=== PATIENT | female | born 1940 | race Caucasian/White ===

== ENCOUNTER 2019-11-11 05:57 | Inpatient (IN) ==
[2019-11-05 12:49] LABS: Basophils % 0.5 % (0.0-0.8); Eosinophils # 0.2 10*3/uL (0.0-0.87); Eosinophils % 2.4 % (0.00-10.9); Hematocrit 32.1 VOL% (35.7-47.0); Hemoglobin 10.2 GM/DL (12.0-16.0); Immature Granulocytes % 0.8 %; Immature Granulocytes Absolute 0.05 #; Lymphocytes # 1.5 10*3/uL (1.4-4.0); Lymphocytes % 23.6 % (21.3-54.2); Mean Corpuscular HGB Conc 31.8 GM/DL (32-36); Mean Corpuscular Volume 98.2 FL (87-102); Mean Platelet Volume 10.8 FL (9.6-12.0); Monocytes % 9.8 % (1.7-12.7); Neutrophils % 62.9 % (38.7-73.9); Platelet Count 285 T/CUMM (130-400); Red Blood Count 3.27 MC/CUMM (3.8-5.5); Red Cell Distribution Width 13.4 % (9.3-17.3); White Blood Count 6.2 T/CUMM (4-12)
[2019-11-05 13:09] LABS: Calcium 9.3 MG/DL (8.5-10.1); Osmolality,Calculated 270.2 MOS/KG (273-304)
[~2019-11-11 05:57] MED LIST: CIPROFLOXACIN 400 MG/200 ML PREMIX IV ONE; LACTATED RINGERS 1,000 ML IV SCH; metroNIDAZOLE 500 MG/100 ML PREMIX IV ONE
[2019-11-11] MEDS ORDERED: CIPROFLOXACIN INJ 400 MG in PREMIX 1 EACH IV ONE (06:00)
[2019-11-11] MEDS ORDERED: metroNIDAZOLE INJ 500 MG in PREMIX 1 EACH IV ONE (06:00)
[2019-11-11] MEDS ORDERED: FAMOTIDINE 20 MG TABLET PO ONE (06:25)
[2019-11-11] MEDS ORDERED: DIAZEPAM 5 MG TABLET PO ONE (06:25)
[2019-11-11] MEDS ORDERED: BUPIVACAINE MPF 0.5% /EPI 30 ML VIAL ONE (06:49)
[2019-11-11] MEDS ORDERED: DEXAMETHASONE 4 MG/1 ML VIAL ONE (06:49)
[2019-11-11] MEDS ORDERED: ALBUMIN 5% 12.5 GM/250 ML VIAL IV ONE (07:19)
[2019-11-11] MEDS ORDERED: FAMOTIDINE 20 MG/2 ML VIAL IV ONE (07:19)
[2019-11-11] MEDS ORDERED: INDOCYANINE GREEN 25 MG VIAL IV ONE (08:06)
[2019-11-11] MEDS ORDERED: TISSUE ADHESIVE 1 EACH APPLICATOR TOP ONE (08:06)
[2019-11-11] MEDS ORDERED: SUGAMMADEX 200 MG/2 ML VIAL IV ONE (10:11)
[2019-11-11] MEDS ORDERED: ACETAMINOPHEN 325 MG SUPP RECTAL ONE (10:15)
[2019-11-11] MEDS ORDERED: SEVOFLURANE 1 UNIT/15 MINUTE INH ONE (11:39)
[2019-11-11] MEDS ORDERED: LIDOCAINE 2% 5 ML VIAL ONE (11:39)
[2019-11-11] MEDS ORDERED: propofoL 200 MG/20 ML VIAL IV ONE (11:39)
[2019-11-11] MEDS ORDERED: CALCIUM CHLORIDE 1,000 MG/10 ML VIAL IV ONE (11:39)
[2019-11-11] MEDS ORDERED: KETAMINE 500 MG/10 ML VIAL ONE (11:40)
[2019-11-11] MEDS ORDERED: MIDAZOLAM 2 MG/2 ML VIAL ONE (11:40)
[2019-11-11] MEDS ORDERED: LACTATED RINGERS 1,000 ML IV ONE (11:40)
[2019-11-11] MEDS ORDERED: KETOROLAC 30 MG/1 ML VIAL ONE (11:40)
[2019-11-11] MEDS ORDERED: ONDANSETRON 4 MG/2 ML VIAL ONE (11:40)
[2019-11-11] MEDS ORDERED: LABETALOL 100 MG/20 ML VIAL IV ONE (11:40)
[2019-11-11] MEDS ORDERED: GLYCOPYRROLATE 0.4 MG/2 ML VIAL ONE (11:41)
[2019-11-11] MEDS ORDERED: SUCCINYLCHOLINE 200 MG/10 ML VIAL ONE (11:41)
[2019-11-11] MEDS ORDERED: ROCURONIUM 100 MG/10 ML VIAL IV ONE (11:41)
[2019-11-11] MEDS ORDERED: LABETALOL 20 MG/4 ML SYRINGE IV ONE (11:42)
[2019-11-11] MEDS ORDERED: hydrALAZINE 20 MG/1 ML VIAL ONE (12:05)
[2019-11-11] MEDS ORDERED: hydrALAZINE 20 MG/1 ML VIAL IV ONE (12:11)
[2019-11-11] MEDS ORDERED: HYDROmorphone 2 MG/1 ML VIAL IV PRN (12:24)
[2019-11-11] MEDS ORDERED: PANTOPRAZOLE 40 MG TABLET PO PRN (14:06)
[2019-11-11] MEDS ORDERED: LOPERAMIDE 2 MG CAPSULE PO PRN (14:06)
[2019-11-11] MEDS ORDERED: MELATONIN 3 MG TABLET PO PRN (14:06)
[2019-11-11] MEDS ORDERED: PROMETHAZINE 25 MG/1 ML VIAL IM PRN (14:06)
[2019-11-11] MEDS ORDERED: ONDANSETRON 4 MG/2 ML VIAL IV PRN (14:06)
[2019-11-11] MEDS: DENOSUMAB 60 MG/ML SYRINGE SUBCUT SCH (15:09)
[2019-11-11] MEDS: LACTATED RINGERS 1,000 ML IV SCH (15:11)
[2019-11-11 15:18] LABS: Basophils % 0.1 % (0.0-0.8); Eosinophils % 0.1 % (0.00-10.9); Hematocrit 31.3 VOL% (35.7-47.0); Hemoglobin 9.6 GM/DL (12.0-16.0); Immature Granulocytes % 0.5 %; Immature Granulocytes Absolute 0.07 #; Lymphocytes # 0.8 10*3/uL (1.4-4.0); Lymphocytes % 5.6 % (21.3-54.2); Mean Corpuscular HGB Conc 30.7 GM/DL (32-36); Mean Platelet Volume 10.9 FL (9.6-12.0); Monocytes % 5.8 % (1.7-12.7); Neutrophils % 87.9 % (38.7-73.9); Platelet Count 158 T/CUMM (130-400); Red Blood Count 3.07 MC/CUMM (3.8-5.5); Red Cell Distribution Width 13.4 % (9.3-17.3); White Blood Count 14.8 T/CUMM (4-12)
[2019-11-11 15:39] LABS: Calcium 9.9 MG/DL (8.5-10.1); Osmolality,Calculated 277.7 MOS/KG (273-304)
[2019-11-11] MEDS: diphenhydrAMINE CAP 25 MG CAPSULE PO SCH (20:21)
[2019-11-11] MEDS: ACETAMINOPHEN 500 MG TABLET PO SCH (20:21)
[2019-11-11] MEDS: VALERIAN ROOT 500 MG PO SCH (20:25)
[2019-11-12] MEDS: LACTATED RINGERS 1,000 ML IV SCH ×3 (02:14→23:56)
[2019-11-12 03:35] LABS: Basophils % 0.1 % (0.0-0.8); Hematocrit 23.3 VOL% (35.7-47.0); Hemoglobin 7.6 GM/DL (12.0-16.0); Immature Granulocytes % 0.5 %; Immature Granulocytes Absolute 0.06 #; Lymphocytes # 1.4 10*3/uL (1.4-4.0); Lymphocytes % 10.6 % (21.3-54.2); Mean Corpuscular HGB Conc 32.6 GM/DL (32-36); Mean Corpuscular Volume 97.5 FL (87-102); Mean Platelet Volume 9.9 FL (9.6-12.0); Monocytes % 7.9 % (1.7-12.7); Neutrophils % 80.9 % (38.7-73.9); Platelet Count 211 T/CUMM (130-400); Red Blood Count 2.39 MC/CUMM (3.8-5.5); Red Cell Distribution Width 13.6 % (9.3-17.3); White Blood Count 13.2 T/CUMM (4-12)
[2019-11-12 03:47] LABS: Calcium 8.5 MG/DL (8.5-10.1); Osmolality,Calculated 277.7 MOS/KG (273-304)
[2019-11-12] MEDS ORDERED: ENOXAPARIN 40 MG/0.4 ML SYRINGE SUBCUT SCH (05:16)
[2019-11-12] MEDS ORDERED: LACTATED RINGERS 1,000 ML IV ONE (06:39)
[2019-11-12] MEDS: OMEGA 3 ACID ETHYL ESTERS 1 GM CAPSULE PO SCH (08:22)
[2019-11-12] MEDS: CALCIUM (CITRATE)/VITAMIN D 200 MG-125 UNIT TABLET PO SCH (08:22)
[2019-11-12] MEDS: FERROUS SULFATE 325 MG TABLET PO SCH (08:22)
[2019-11-12] MEDS: LACTOBACILLUS ACIDOPHILUS/BULGARICUS CAPLET PO SCH (08:22)
[2019-11-12] MEDS: [UNRECOGNIZED DRUG - OTHER] PO SCH (08:23)
[2019-11-12 13:29] LABS: Hematocrit 21.1 VOL% (35.7-47.0); Hemoglobin 6.6 GM/DL (12.0-16.0)
[2019-11-12] MEDS ORDERED: SODIUM CHLORIDE 0.9% 1,000 ML IV PRN (14:04)
[2019-11-12] MEDS: DENOSUMAB 60 MG/ML SYRINGE SUBCUT SCH (15:37)
[2019-11-12] MEDS: HYDROmorphone 2 MG/1 ML VIAL IV PRN ×2 (18:29→23:56)
[2019-11-12] MEDS: ACETAMINOPHEN 500 MG TABLET PO SCH (20:10)
[2019-11-12] MEDS: diphenhydrAMINE CAP 25 MG CAPSULE PO SCH (20:10)
[2019-11-12] MEDS: VALERIAN ROOT 500 MG PO SCH (20:12)
[2019-11-12 21:17] LABS: Hematocrit 31.5 VOL% (35.7-47.0)
[2019-11-12 21:18] LABS: Hemoglobin 10.3 GM/DL (12.0-16.0)
[2019-11-12 21:40] LABS: PT Patient Result 10.9 SECS (9.8-11.9)
[2019-11-13] MEDS: HYDROmorphone 2 MG/1 ML VIAL IV PRN (04:29)
[2019-11-13 05:39] LABS: Basophils % 0.2 % (0.0-0.8); Eosinophils # 0.1 10*3/uL (0.0-0.87); Eosinophils % 0.4 % (0.00-10.9); Hemoglobin 11.1 GM/DL (12.0-16.0); Immature Granulocytes % 0.5 %; Immature Granulocytes Absolute 0.07 #; Lymphocytes # 2.3 10*3/uL (1.4-4.0); Lymphocytes % 16.1 % (21.3-54.2); Mean Corpuscular HGB Conc 31.7 GM/DL (32-36); Mean Corpuscular Volume 95.9 FL (87-102); Mean Platelet Volume 10.2 FL (9.6-12.0); Monocytes % 7.5 % (1.7-12.7); Neutrophils % 75.3 % (38.7-73.9); Platelet Count 204 T/CUMM (130-400); Red Blood Count 3.65 MC/CUMM (3.8-5.5); Red Cell Distribution Width 14.7 % (9.3-17.3); White Blood Count 14.2 T/CUMM (4-12)
[2019-11-13 06:03] LABS: Calcium 8.6 MG/DL (8.5-10.1); Osmolality,Calculated 281.3 MOS/KG (273-304)
[2019-11-13 07:36] VITALS: BP 125/75
[2019-11-13] MEDS: CALCIUM (CITRATE)/VITAMIN D 200 MG-125 UNIT TABLET PO SCH (08:53)
[2019-11-13] MEDS: LACTATED RINGERS 1,000 ML IV SCH (08:53)
[2019-11-13] MEDS: OMEGA 3 ACID ETHYL ESTERS 1 GM CAPSULE PO SCH (08:54)
[2019-11-13] MEDS: LACTOBACILLUS ACIDOPHILUS/BULGARICUS CAPLET PO SCH (08:54)
[2019-11-13] MEDS: FERROUS SULFATE 325 MG TABLET PO SCH (08:54)
[2019-11-13] MEDS: [UNRECOGNIZED DRUG - OTHER] PO SCH (08:55)
== END 2019-11-13 11:17 | disposition home health service (06) | DRG 330 ==
LOC: EDBD → N.SDSINP 05:57 → N.4E 12:48
PROVIDERS: ADMIT Surgery; ATTEND Surgery

== ENCOUNTER 2019-11-17 14:16 | Inpatient (IN) ==
[2019-11-17] MEDS ORDERED: ACETAMINOPHEN 325 MG TABLET PO PRN (16:51)
[2019-11-17] MEDS ORDERED: LACTATED RINGERS 1,000 ML IV ONE (16:51)
[2019-11-17] MEDS ORDERED: PROMETHAZINE 25 MG/1 ML VIAL IM PRN (16:51)
[2019-11-17 17:48] LABS: Basophils % 0.2 % (0.0-0.8); Eosinophils % 0.1 % (0.00-10.9); Hemoglobin 11.8 GM/DL (12.0-16.0); Immature Granulocytes Absolute 0.13 #; Lymphocytes # 0.8 10*3/uL (1.4-4.0); Lymphocytes % 5.8 % (21.3-54.2); Mean Corpuscular HGB Conc 31.9 GM/DL (32-36); Mean Corpuscular Volume 95.1 FL (87-102); Mean Platelet Volume 10.1 FL (9.6-12.0); Monocytes % 7.2 % (1.7-12.7); Neutrophils % 85.7 % (38.7-73.9); Platelet Count 288 T/CUMM (130-400); Red Blood Count 3.89 MC/CUMM (3.8-5.5); Red Cell Distribution Width 13.9 % (9.3-17.3); White Blood Count 13.4 T/CUMM (4-12)
[2019-11-17 17:53] LABS: Albumin 2.8 G/DL (3.4-5.0); Bilirubin,Total 1.7 MG/DL (0.2-1.0); Osmolality,Calculated 273.8 MOS/KG (273-304)
[2019-11-17] MEDS: HYDROmorphone 2 MG/1 ML VIAL IV PRN ×2 (18:36→23:19)
[2019-11-17] MEDS: ONDANSETRON 4 MG/2 ML VIAL IV PRN (21:25)
[2019-11-17] MEDS: LACTATED RINGERS 1,000 ML IV SCH (23:19)
[2019-11-18] MEDS: LACTATED RINGERS 1,000 ML IV SCH ×2 (02:59→09:06)
[2019-11-18] MEDS: HYDROmorphone 2 MG/1 ML VIAL IV PRN (05:58)
[2019-11-18 06:38] LABS: Basophils % 0.4 % (0.0-0.8); Eosinophils # 0.1 10*3/uL (0.0-0.87); Hemoglobin 10.1 GM/DL (12.0-16.0); Immature Granulocytes % 1.4 %; Immature Granulocytes Absolute 0.16 #; Lymphocytes # 1.3 10*3/uL (1.4-4.0); Lymphocytes % 11.6 % (21.3-54.2); Mean Corpuscular HGB Conc 31.6 GM/DL (32-36); Mean Corpuscular Volume 95.5 FL (87-102); Mean Platelet Volume 9.6 FL (9.6-12.0); Monocytes % 9.2 % (1.7-12.7); Neutrophils % 76.4 % (38.7-73.9); Platelet Count 276 T/CUMM (130-400); Red Blood Count 3.35 MC/CUMM (3.8-5.5); Red Cell Distribution Width 13.6 % (9.3-17.3); White Blood Count 11.4 T/CUMM (4-12)
[2019-11-18 07:02] LABS: Albumin 2.4 G/DL (3.4-5.0); Bilirubin,Total 1.1 MG/DL (0.2-1.0); Calcium 9.1 MG/DL (8.5-10.1); Osmolality,Calculated 271.8 MOS/KG (273-304); Total Protein 6.9 G/DL (6.4-8.3)
[2019-11-18] MEDS: PANTOPRAZOLE 40 MG TABLET PO SCH (09:06)
[2019-11-18] MEDS: ENOXAPARIN 40 MG/0.4 ML SYRINGE SUBCUT SCH (09:06)
[2019-11-18] MEDS: ONDANSETRON 4 MG/2 ML VIAL IV PRN (09:12)
[2019-11-18] MEDS: DEXT 5% NACL 0.45% KCL 40 MEQ 40 MEQ/1,000 ML BAG IV SCH (14:24)
[2019-11-18] MEDS: ZALEPLON 5 MG CAPSULE PO PRN (21:27)
[2019-11-19] MEDS: DEXT 5% NACL 0.45% KCL 40 MEQ 40 MEQ/1,000 ML BAG IV SCH ×3 (01:45→21:08)
[2019-11-19 05:54] LABS: Basophils % 0.4 % (0.0-0.8); Eosinophils # 0.2 10*3/uL (0.0-0.87); Eosinophils % 2.1 % (0.00-10.9); Hematocrit 30.3 VOL% (35.7-47.0); Hemoglobin 9.8 GM/DL (12.0-16.0); Immature Granulocytes % 1.8 %; Immature Granulocytes Absolute 0.14 #; Lymphocytes # 1.3 10*3/uL (1.4-4.0); Lymphocytes % 16.5 % (21.3-54.2); Mean Corpuscular HGB Conc 32.3 GM/DL (32-36); Mean Corpuscular Volume 93.8 FL (87-102); Mean Platelet Volume 9.9 FL (9.6-12.0); Monocytes % 11.7 % (1.7-12.7); Neutrophils % 67.5 % (38.7-73.9); Platelet Count 294 T/CUMM (130-400); Red Blood Count 3.23 MC/CUMM (3.8-5.5); Red Cell Distribution Width 13.5 % (9.3-17.3); White Blood Count 7.6 T/CUMM (4-12)
[2019-11-19 07:03] LABS: Calcium 8.5 MG/DL (8.5-10.1); Osmolality,Calculated 277.4 MOS/KG (273-304)
[2019-11-19] MEDS: PANTOPRAZOLE 40 MG TABLET PO SCH (08:57)
[2019-11-19] MEDS: ENOXAPARIN 40 MG/0.4 ML SYRINGE SUBCUT SCH (08:57)
[2019-11-19] MEDS: ZALEPLON 5 MG CAPSULE PO PRN (21:10)
[2019-11-20] MEDS: DEXT 5% NACL 0.45% KCL 40 MEQ 40 MEQ/1,000 ML BAG IV SCH (05:48)
[2019-11-20] MEDS ORDERED: LOPERAMIDE 2 MG CAPSULE PO PRN (06:32)
[2019-11-20 07:59] LABS: Apearance,Urine CLEAR (Clear); Bilirubin,Urine Negative (Negative); Blood, Urine Negative (Negative); Glucose,Urine (UA) Negative (Negative); Ketones,Urine Negative (Negative); Nitrite,Urine Negative (Negative); Protein,Urine Negative; RBC,Urine <1 /HPF (0-4); Urine Color Straw (Yellow); Urine Specific Gravity 1.006 (1.001-1.035); Urine Urobilinogen < 2.0 EU/DL (0.2-1.0)
[2019-11-20] MEDS ORDERED: LEVOFLOXACIN INJ 750 MG in PREMIX 1 EACH IV SCH (08:00)
[2019-11-20] MEDS: ENOXAPARIN 40 MG/0.4 ML SYRINGE SUBCUT SCH (08:49)
[2019-11-20] MEDS: CHOLECALCIFEROL 5,000 UNIT TABLET PO SCH (08:49)
[2019-11-20] MEDS: MULTIVITAMIN (CENTRUM) TABLET PO SCH (08:49)
[2019-11-20] MEDS: PANTOPRAZOLE 40 MG TABLET PO SCH (08:49)
[2019-11-20] MEDS: CALCIUM (CARBONATE) 600 MG TABLET PO SCH ×2 (08:49→17:30)
[2019-11-20] MEDS: CLINDAMYCIN INJ 600 MG in PREMIX 1 EACH IV SCH ×2 (10:27→17:30)
[2019-11-20] MEDS ORDERED: ACETAMINOPHEN 500 MG TABLET PO SCH (21:00)
[2019-11-20] MEDS ORDERED: diphenhydrAMINE CAP 25 MG CAPSULE PO SCH (21:00)
[2019-11-21] MEDS: CLINDAMYCIN INJ 600 MG in PREMIX 1 EACH IV SCH (00:41)
[2019-11-21] MEDS ORDERED: LEVOFLOXACIN 500 MG TABLET PO SCH (07:30)
[2019-11-21] MEDS: MULTIVITAMIN (CENTRUM) TABLET PO SCH (10:28)
[2019-11-21] MEDS: CALCIUM (CARBONATE) 600 MG TABLET PO SCH (10:28)
[2019-11-21] MEDS: PANTOPRAZOLE 40 MG TABLET PO SCH (10:28)
[2019-11-21] MEDS: ENOXAPARIN 40 MG/0.4 ML SYRINGE SUBCUT SCH (10:29)
[2019-11-21] MEDS: CHOLECALCIFEROL 5,000 UNIT TABLET PO SCH (10:30)
[2019-11-21 11:31] VITALS: BP 136/73
[2019-11-21] MEDS ORDERED: CLINDAMYCIN 300 MG CAPSULE PO SCH (14:00)
== END 2019-11-21 11:43 | disposition home health service (06) | DRG 390 ==
LOC: N.ADMINP 14:28
PROVIDERS: ADMIT Surgery; ATTEND Surgery

== ENCOUNTER 2020-02-11 05:28 | Inpatient (IN) ==
[2020-02-05 11:39] LABS: Basophils % 0.4 % (0.0-0.8); Eosinophils % 0.6 % (0.00-10.9); Hematocrit 28.6 VOL% (35.7-47.0); Immature Granulocytes % 1.4 %; Lymphocytes # 1.4 10*3/uL (1.4-4.0); Lymphocytes % 20.5 % (21.3-54.2); Mean Corpuscular HGB Conc 31.5 GM/DL (32-36); Mean Corpuscular Volume 101.1 FL (87-102); Mean Platelet Volume 10.5 FL (9.6-12.0); Monocytes % 9.7 % (1.7-12.7); Neutrophils % 67.4 % (38.7-73.9); Platelet Count 268 T/CUMM (130-400); Red Blood Count 2.83 MC/CUMM (3.8-5.5); Red Cell Distribution Width 17.7 % (9.3-17.3)
[2020-02-05 11:58] LABS: Osmolality,Calculated 280.8 MOS/KG (273-304)
[2020-02-11] MEDS ORDERED: VANCOMYCIN 500 MG VIAL ONE (06:21)
[2020-02-11] MEDS ORDERED: cefOXitin 2,000 MG in SYRINGE 1 EACH IV ONE (06:30)
[2020-02-11] MEDS: LACTATED RINGERS 1,000 ML IV SCH ×2 (07:40→09:10)
[2020-02-11] MEDS ORDERED: SCOPOLAMINE 1.5 MG PATCH TRANSDERM ONE (08:00)
[2020-02-11] MEDS ORDERED: LIDOCAINE 2% 5 ML VIAL ONE (08:58)
[2020-02-11] MEDS ORDERED: propofoL 200 MG/20 ML VIAL IV ONE (08:58)
[2020-02-11] MEDS ORDERED: ONDANSETRON 4 MG/2 ML VIAL ONE ×2 (08:59→09:17)
[2020-02-11] MEDS ORDERED: DEXAMETHASONE 4 MG/1 ML VIAL ONE (08:59)
[2020-02-11] MEDS ORDERED: NEOSTIGMINE 10 MG/10 ML VIAL ONE (08:59)
[2020-02-11] MEDS ORDERED: GLYCOPYRROLATE 0.4 MG/2 ML VIAL ONE (08:59)
[2020-02-11] MEDS ORDERED: ROCURONIUM 100 MG/10 ML VIAL IV ONE (08:59)
[2020-02-11] MEDS ORDERED: MIDAZOLAM 2 MG/2 ML VIAL ONE (08:59)
[2020-02-11] MEDS ORDERED: fentaNYL 100 MCG/2 ML VIAL ONE (08:59)
[2020-02-11] MEDS ORDERED: SEVOFLURANE 1 UNIT/15 MINUTE INH ONE (08:59)
[2020-02-11] MEDS ORDERED: ONDANSETRON 4 MG/2 ML VIAL IV PRN ×2 (09:15→10:00)
[2020-02-11] MEDS ORDERED: HYDROmorphone 2 MG/1 ML VIAL IV PRN (09:15)
[2020-02-11] MEDS ORDERED: HYDROmorphone 2 MG/1 ML VIAL ONE (09:17)
[2020-02-11] MEDS ORDERED: MELATONIN 3 MG TABLET PO PRN (10:00)
[2020-02-11] MEDS ORDERED: PROMETHAZINE 25 MG/1 ML VIAL IM PRN (10:00)
[2020-02-11] MEDS ORDERED: LACTATED RINGERS 1,000 ML IV SCH (10:30)
[2020-02-11 11:17] LABS: Calcium 8.9 MG/DL (8.5-10.1); Osmolality,Calculated 273.4 MOS/KG (273-304)
[2020-02-11] MEDS ORDERED: SODIUM CHLORIDE 0.9% 1,000 ML IV ONE ×2 (12:20→12:22)
[2020-02-11] MEDS: HYDROmorphone 2 MG/1 ML VIAL IV PRN ×3 (12:45→20:21)
[2020-02-11] MEDS: SODIUM CHLORIDE 0.9% 1,000 ML IV SCH (13:46)
[2020-02-12] MEDS: SODIUM CHLORIDE 0.9% 1,000 ML IV SCH ×4 (00:31→13:53)
[2020-02-12] MEDS: HYDROmorphone 2 MG/1 ML VIAL IV PRN (02:09)
[2020-02-12] MEDS ORDERED: ENOXAPARIN 40 MG/0.4 ML SYRINGE SUBCUT SCH (06:00)
[2020-02-12 06:15] LABS: Basophils % 0.2 % (0.0-0.8); Eosinophils % 0.1 % (0.00-10.9); Hematocrit 24.8 VOL% (35.7-47.0); Hemoglobin 7.6 GM/DL (12.0-16.0); Immature Granulocytes % 0.6 %; Immature Granulocytes Absolute 0.06 #; Lymphocytes # 1.7 10*3/uL (1.4-4.0); Lymphocytes % 16.4 % (21.3-54.2); Mean Corpuscular HGB Conc 30.6 GM/DL (32-36); Mean Corpuscular Volume 102.1 FL (87-102); Mean Platelet Volume 9.7 FL (9.6-12.0); Monocytes % 9.9 % (1.7-12.7); Neutrophils % 72.8 % (38.7-73.9); Platelet Count 230 T/CUMM (130-400); Red Blood Count 2.43 MC/CUMM (3.8-5.5); Red Cell Distribution Width 17.4 % (9.3-17.3); White Blood Count 10.4 T/CUMM (4-12)
[2020-02-12 06:34] LABS: Calcium 7.8 MG/DL (8.5-10.1); Osmolality,Calculated 284.1 MOS/KG (273-304)
[2020-02-12 11:27] VITALS: BP 98/58
== END 2020-02-12 14:15 | disposition home health service (06) | DRG 330 ==
LOC: N.SDSINP 05:28 → N.3E 09:56
PROVIDERS: ADMIT Surgery; ATTEND Surgery

== ENCOUNTER 2020-02-14 10:02 | Inpatient (IN) ==
[2020-02-14] MEDS ORDERED: SODIUM CHLORIDE 0.9% 500 ML IV STA (10:33)
[2020-02-14 11:05] LABS: Basophils % 0.1 % (0.0-0.8); Hematocrit 26.5 VOL% (35.7-47.0); Hemoglobin 8.7 GM/DL (12.0-16.0); Immature Granulocytes % 0.6 %; Immature Granulocytes Absolute 0.07 #; Lymphocytes # 0.6 10*3/uL (1.4-4.0); Lymphocytes % 5.3 % (21.3-54.2); Mean Corpuscular HGB Conc 32.8 GM/DL (32-36); Mean Corpuscular Volume 97.8 FL (87-102); Mean Platelet Volume 9.6 FL (9.6-12.0); Monocytes % 5.5 % (1.7-12.7); Neutrophils % 88.5 % (38.7-73.9); Platelet Count 253 T/CUMM (130-400); Red Blood Count 2.71 MC/CUMM (3.8-5.5); Red Cell Distribution Width 16.9 % (9.3-17.3)
[2020-02-14 11:25] LABS: Albumin 2.8 G/DL (3.4-5.0); Bilirubin,Total 0.8 MG/DL (0.2-1.0); Calcium 9.1 MG/DL (8.5-10.1); Osmolality,Calculated 277.4 MOS/KG (273-304); Total Protein 7.4 G/DL (6.4-8.3)
[2020-02-14] MEDS ORDERED: ACETAMINOPHEN 325 MG TABLET PO PRN (11:55)
[2020-02-14] MEDS: ONDANSETRON 4 MG/2 ML VIAL IV SCH ×3 (12:25→20:56)
[2020-02-14] MEDS: CIPROFLOXACIN INJ 400 MG in PREMIX 1 EACH IV SCH (12:26)
[2020-02-14 12:28] LABS: Bilirubin,Urine Negative (Negative); Blood, Urine Negative (Negative); Glucose,Urine (UA) Negative (Negative); Ketones,Urine 20 mg/dL (Negative); Nitrite,Urine Negative (Negative); Protein,Urine Negative; Squamous Epithelial Cell,Urine Occasional /HPF (0-10); Urine Appearance CLEAR (Clear); Urine Color Yellow (Yellow); Urine Urobilinogen < 2.0 EU/DL (0.2-1.0)
[2020-02-14] MEDS: DEXTROSE 5% NACL 0.45% 1,000 ML IV SCH (15:29)
[2020-02-14] MEDS: diphenhydrAMINE 50 MG/1 ML VIAL IV PRN (20:57)
[2020-02-15] MEDS: CIPROFLOXACIN INJ 400 MG in PREMIX 1 EACH IV SCH ×2 (01:43→11:47)
[2020-02-15] MEDS: ONDANSETRON 4 MG/2 ML VIAL IV SCH ×7 (01:45→21:57)
[2020-02-15] MEDS: DEXTROSE 5% NACL 0.45% 1,000 ML IV SCH ×2 (04:44→16:04)
[2020-02-15 10:20] LABS: Basophils % 0.1 % (0.0-0.8); Eosinophils # 0.1 10*3/uL (0.0-0.87); Eosinophils % 0.9 % (0.00-10.9); Hematocrit 25.3 VOL% (35.7-47.0); Immature Granulocytes % 1.2 %; Immature Granulocytes Absolute 0.09 #; Lymphocytes # 1.7 10*3/uL (1.4-4.0); Lymphocytes % 21.5 % (21.3-54.2); Mean Corpuscular HGB Conc 31.6 GM/DL (32-36); Mean Corpuscular Volume 102.4 FL (87-102); Monocytes % 9.6 % (1.7-12.7); Neutrophils % 66.7 % (38.7-73.9); Platelet Count 284 T/CUMM (130-400); Red Blood Count 2.47 MC/CUMM (3.8-5.5); White Blood Count 7.8 T/CUMM (4-12)
[2020-02-15] MEDS: PANTOPRAZOLE 40 MG TABLET PO SCH (10:30)
[2020-02-15 10:55] LABS: Calcium 8.1 MG/DL (8.5-10.1); Osmolality,Calculated 278.3 MOS/KG (273-304)
[2020-02-15] MEDS: diphenhydrAMINE 50 MG/1 ML VIAL IV PRN (21:57)
[2020-02-16] MEDS: CIPROFLOXACIN INJ 400 MG in PREMIX 1 EACH IV SCH (01:01)
[2020-02-16] MEDS: ONDANSETRON 4 MG/2 ML VIAL IV SCH ×3 (01:01→09:55)
[2020-02-16] MEDS: DEXTROSE 5% NACL 0.45% 1,000 ML IV SCH (04:37)
[2020-02-16 08:27] VITALS: BP 112/54
[2020-02-16] MEDS: PANTOPRAZOLE 40 MG TABLET PO SCH (09:54)
== END 2020-02-16 11:12 | disposition home health service (06) | DRG 389 ==
LOC: EDBD → EDUNIT# → N.ED 10:02 → N.EDINP 11:55 → N.3E 14:09
PROVIDERS: ADMIT Surgery; ATTEND Surgery

== ENCOUNTER 2022-01-23 11:07 | Observation (INO) ==
[2022-01-23] MEDS ORDERED: KETOROLAC 30 MG/1 ML VIAL IV STA (12:49)
[2022-01-23] MEDS ORDERED: ONDANSETRON 4 MG/2 ML VIAL IV STA (12:51)
[2022-01-23 12:56] LABS: Basophils # 0.1 10*3/uL (0.0-0.2); Basophils % 0.4 % (0.0-0.8); Eosinophils # 0.1 10*3/uL (0.0-0.87); Eosinophils % 0.6 % (0.00-10.9); Hematocrit 27.1 VOL% (35.7-47.0); Hemoglobin 8.6 GM/DL (12.0-16.0); Immature Granulocytes % 4.2 %; Immature Granulocytes Absolute 0.48 #; Lymphocytes # 2.2 10*3/uL (1.4-4.0); Lymphocytes % 18.9 % (21.3-54.2); Mean Corpuscular HGB Conc 31.7 GM/DL (32-36); Mean Corpuscular Volume 98.2 FL (87-102); Mean Platelet Volume 9.1 FL (9.6-12.0); Monocytes # 0.8 10*3/uL (0.11-0.8); Monocytes % 7.3 % (1.7-12.7); Neutrophils % 68.6 % (38.7-73.9); Platelet Count 385 T/CUMM (130-400); Red Blood Count 2.76 MC/CUMM (3.8-5.5); Red Cell Distribution Width 13.9 % (9.3-17.3); White Blood Count 11.5 T/CUMM (4-12)
[2022-01-23 13:16] LABS: Bilirubin,Urine Negative (Negative); Blood, Urine Small mg/dL (Negative); Glucose,Urine (UA) Negative (Negative); Ketones,Urine Negative (Negative); Nitrite,Urine Negative (Negative); Protein,Urine Negative (Negative); RBC,Urine 1 /HPF (0-4); Urine Appearance Clear (Clear); Urine Color Yellow (Yellow); Urine Urobilinogen 0.2 eU/dL (<2.0); Urine pH 5.5 (4.5-8.0)
[2022-01-23 13:20] LABS: Albumin 2.9 G/DL (3.4-5.0); Bilirubin,Total 0.5 MG/DL (0.20-1.00); Calcium 9.4 MG/DL (8.5-10.1); Osmolality,Calculated 273.7 MOS/KG (273-304); Potassium 3.7 MMOL/L (3.5-5.1)
[2022-01-23] MEDS ORDERED: ACETAMINOPHEN 325 MG TABLET PO PRN (15:47)
[2022-01-23] MEDS ORDERED: GLUCAGON 1 MG VIAL IM PRN (15:47)
[2022-01-23] MEDS ORDERED: ONDANSETRON 4 MG/2 ML VIAL IV PRN (15:47)
[2022-01-23] MEDS ORDERED: DEXTROSE 10% 250 ML BAG IV PRN (15:47)
[2022-01-23] MEDS: POLYETHYLENE GLYCOL POWDER 17 GM PACK PO SCH (17:29)
[2022-01-23] MEDS: SODIUM CHLORIDE 0.9% 1,000 ML IV SCH (19:29)
[2022-01-23 19:35] LABS: % Iron Saturation 6.7 % (18-50)
[2022-01-23 19:52] LABS: Folate > 24.00 NG/ML (5.38-24.0); Vitamin B12 1633 PG/ML (211-911)
[2022-01-23] MEDS: ENOXAPARIN 40 MG/0.4 ML SYRINGE SUBCUT SCH (20:29)
[2022-01-23] MEDS: MELATONIN 3 MG TABLET PO PRN (20:30)
[2022-01-24 06:01] LABS: Basophils % 0.3 % (0.0-0.8); Eosinophils # 0.1 10*3/uL (0.0-0.87); Eosinophils % 1.5 % (0.00-10.9); Hematocrit 28.3 VOL% (35.7-47.0); Hemoglobin 9.1 GM/DL (12.0-16.0); Immature Granulocytes % 5.1 %; Immature Granulocytes Absolute 0.45 #; Lymphocytes # 2.5 10*3/uL (1.4-4.0); Lymphocytes % 28.1 % (21.3-54.2); Mean Corpuscular HGB Conc 32.2 GM/DL (32-36); Mean Corpuscular Volume 96.9 FL (87-102); Mean Platelet Volume 9.6 FL (9.6-12.0); Monocytes # 0.9 10*3/uL (0.11-0.8); Monocytes % 9.8 % (1.7-12.7); Neutrophils % 55.2 % (38.7-73.9); Platelet Count 356 T/CUMM (130-400); Red Blood Count 2.92 MC/CUMM (3.8-5.5); Red Cell Distribution Width 14.1 % (9.3-17.3); White Blood Count 8.8 T/CUMM (4-12)
[2022-01-24 06:24] LABS: Calcium 8.8 MG/DL (8.5-10.1); Osmolality,Calculated 273.7 MOS/KG (273-304); Potassium 4.2 MMOL/L (3.5-5.1); Risk Ratio 3.61; Thyroid Stimulating Hormone 1.85 uIU/ml (0.358-3.74); VLDL Cholesterol 17.4 MG/DL
[2022-01-24 06:27] LABS: Eosinophils 3 % (0-10); Hypochromia Slight; Lymphocytes 17 % (20-55); Microcytosis Slight; Platelet Estimate Adequate; Total Cells Counted 100
[2022-01-24] MEDS: PANTOPRAZOLE 40 MG TABLET PO SCH (08:57)
[2022-01-24] MEDS: POLYETHYLENE GLYCOL POWDER 17 GM PACK PO SCH (08:57)
[2022-01-24] MEDS: FERRIC GLUCONATE COMPLEX 125 MG in SODIUM CHLORIDE 0.9% 100 ML IV SCH (12:12)
[2022-01-24] MEDS: ENOXAPARIN 40 MG/0.4 ML SYRINGE SUBCUT SCH (20:09)
[2022-01-24] MEDS: MELATONIN 3 MG TABLET PO PRN (20:09)
[2022-01-25] MEDS: SODIUM CHLORIDE 0.9% 1,000 ML IV SCH ×2 (01:50→16:40)
[2022-01-25 08:58] VITALS: BP 118/83
[2022-01-25] MEDS ORDERED: LORazepam 0.5 MG TABLET PO ONE (09:00)
[2022-01-25] MEDS: PANTOPRAZOLE 40 MG TABLET PO SCH (09:39)
[2022-01-25] MEDS: FERRIC GLUCONATE COMPLEX 125 MG in SODIUM CHLORIDE 0.9% 100 ML IV SCH (09:40)
[2022-01-25] MEDS: POLYETHYLENE GLYCOL POWDER 17 GM PACK PO SCH (09:40)
== END 2022-01-25 16:05 | disposition home health service (06) ==
LOC: EDBD → EDUNIT# → N.EDINP 11:07 → N.ED 11:07 → SUATTDRO 15:47 → N.5E 17:17
PROVIDERS: ADMIT Internal Medicine; ATTEND Internal Medicine